=== PATIENT | male | born 1950 | race Native Hawaiian/Other Pacific Islander ===

== ENCOUNTER 2017-10-27 10:39 | Outpatient (CLI) | payer OTHER ==
[2017-10-27 11:39] LABS: BUN/Creatinine Ratio 13; Blood Urea Nitrogen 10 mg/dL (9-20); Hemolysis Index 33
--- NOTE | 2017-10-27 13:38 | Cat Scan Report ---
FINAL REPORT EXAM: CT CHEST W CON HISTORY: LUNG MODULE COMPARISON: None. TECHNIQUE: Multiple contiguous axial images were obtained from the thoracic inlet to the upper abdomen after administration of IV contrast. Reformatted sagittal and coronal images were available for review. FINDINGS: Medical devices: None. Thyroid: Normal. Lymph nodes: No significant mediastinal, hilar, or axillary lymphadenopathy. Vasculature: Normal caliber of the pulmonary artery. No filling defect to suggest pulmonary embolism. Normal caliber of the thoracic aorta with normal variant branching pattern of the aortic arch, with a common origin between the right brachiocephalic artery and left common carotid artery. Heart: Normal. Other mediastinal structures: Normal. Lung parenchyma: Paraseptal emphysematous change in the bilateral upper lobes. 5 millimeter nodule in the posterior right upper lobe (series 2, image 34). 4 millimeter nodule in the posterior right upper lobe (series 2, image 29). Several pleural based nodules along the anterior right upper lobe measuring up to 6 millimeters (series 2, image 38). Cluster of small nodules in the right upper lobe measuring up to 4 millimeters (series 2, image 41). 6 millimeter nodule in the anterior left upper lobe (series 2, image 45). 5 millimeter ground-glass nodule in the anterior left upper lobe (series 2, image 68). 6 millimeter nodule in the apical left upper lobe (series 2, image 20). Airways: Patent. No bronchiectasis. Pleura: No pleural effusion or pneumothorax. Chest wall and spine: No suspicious osseous lesions. No acute fracture or dislocation. The soft tissues are intact. Upper Abdomen: The pancreatic duct is dilated, measuring up to 9 millimeters in diameter. IMPRESSION: 1. Multiple pulmonary nodules measuring up to 6 millimeters, as detailed above. According to Fleischner society criteria, if this patient is at high risk for malignancy, follow-up CT is recommended at 3-6 months and then at 18-24 months if there is no change. If this patient is at low risk for malignancy followup CT is recommended at 3-6 months and then further follow-up may be considered at 18-24 months. 2. Dilated pancreatic duct measuring up to 9 millimeters in diameter. Consider further evaluation with MR pancreatic protocol including MRCP.
== END 2017-10-27 10:40 | disposition home or self-care (01) ==
LOC: CT 10:39
PROVIDERS: ATTEND Internal Medicine
DX: R91.8 Other nonspecific abnormal finding of lung field (principal)
CPT/HCPCS: 36415; 71260; 80048; Q9967

== ENCOUNTER 2018-09-20 14:37 | Emergency (ER) | payer OTHER, MEDICARE ==
[2018-09-20 14:47] VITALS: BP 148/99
--- NOTE | 2018-09-20 15:50 | Emergency Department Report ---
Blank Doc - Documentation Documentation: 68 y o male with hx of arthritis and hx of pancreatis cancer with removal,prese nts here today cc of right wrist pain and swelling with pain with movt tender, wollen ,ernestina xr
--- NOTE | 2018-09-20 16:52 | XRay Report ---
PROCEDURE: XR HAND 3+V RT TECHNIQUE: Right hand 3 views HISTORY: pain COMPARISONS: FINDINGS: Marked degenerative and erosive changes are present at the wrist. There is narrowing of the radiocarp al joint space. There is narrowing of the carpal joint spaces with some inferior migration of the cap itate noted. The navicular has irregular appearance with rotation and some fragmentation noted. No de finitive acute fracture is identified. 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 This document is electronically signed by Mani Bateman MD., September 20 2018 04:50:35 PM ET
--- NOTE | 2018-09-20 16:54 | XRay Report ---
PROCEDURE: XR WRIST 3+V RT TECHNIQUE: Right wrist 4 views HISTORY: pain COMPARISONS: FINDINGS: Degenerative and erosive type changes are present at the wrist. There is narrowing of the radiocarpal joint space. Narrowing throughout the carpal joints. There is some inferior migration of the capitat e. The navicular has an irregular appearance with rotation. No acute fractures are identified IMPRESSION: Marked degenerative changes of the wrist. This document is electronically signed by Mani Bateman MD., September 20 2018 04:52:11 PM ET
[2018-09-20] MEDS ORDERED: PERCOCET 5/325 PO STA (17:47)
--- NOTE | 2018-09-20 18:14 | Emergency Department Report ---
ED Upper Extremity Inj HPI - General Chief Complaint: Extremity Injury, Upper Stated Complaint: RT HAND SWOLLEN/PAIN Time Seen by Provider: 09/20/18 15:44 Source: patient Mode of arrival: Ambulatory Limitations: No Limitations - History of Present Illness MD Complaint: Injury to:: right, wrist, hand -: Gradual, days(s) Other Extremity Injury: Hand: Right, Wrist: Right Handedness: right Place: home Improves With: none Worsens With: movement of extremity (and palpation. ) Associated Symptoms: denies other symptoms - Related Data Previous Rx's Medication Instructions Recorded Last Taken Type predniSONE [Deltasone] 50 mg PO QDAY #5 tab 09/20/18 Unknown Rx traMADol [Ultram] 50 mg PO Q6HR PRN #14 tablet 09/20/18 Unknown Rx Allergies Allergy/AdvReac Type Severity Reaction Status Date / Time No Known Allergies Allergy Unverified 10/27/17 10:39 ED Review of Systems ROS: Stated complaint: RT HAND SWOLLEN/PAIN Other details as noted in HPI Constitutional: denies: chills, fever Eyes: denies: eye pain, eye discharge, vision change ENT: denies: ear pain, throat pain Respiratory: denies: cough, shortness of breath, wheezing Cardiovascular: denies: chest pain, palpitations Endocrine: no symptoms reported Gastrointestinal: denies: abdominal pain, nausea, diarrhea Genitourinary: denies: urgency, dysuria Musculoskeletal: arthralgia. denies: back pain, joint swelling Skin: denies: rash, lesions Neurological: denies: headache, weakness, paresthesias Psychiatric: denies: anxiety, depression Hematological/Lymphatic: denies: easy bleeding, easy bruising ED Past Medical Hx - Past Medical History Additional medical history: Pancreatic cancer - Surgical History Additional Surgical History: Whipple - Social History Smoking Status: Current Every Day Smoker Substance Use Type: None - Medications Home Medications: Home Medications Medication Instructions Recorded Confirmed Last Taken Type predniSONE [Deltasone] 50 mg PO QDAY #5 tab 09/20/18 Unknown Rx traMADol [Ultram] 50 mg PO Q6HR PRN #14 tablet 09/20/18 Unknown Rx ED Physical Exam - General Limitations: No Limitations General appearance: alert, in no apparent distress - Head Head exam: Present: atraumatic, normocephalic - Eye Eye exam: Present: normal appearance, PERRL, EOMI - ENT ENT exam: Present: normal exam, normal orophraynx, mucous membranes moist - Neck Neck exam: Present: normal inspection, full ROM - Respiratory Respiratory exam: Present: normal lung sounds bilaterally. Absent: respiratory distress, wheezes, rales, rhonchi, chest wall tenderness, accessory muscle use, decreased breath sounds, prolonged expiratory - Cardiovascular Cardiovascular Exam: Present: regular rate, normal rhythm. Absent: systolic murmur, diastolic murmur, rubs, gallop - GI/Abdominal GI/Abdominal exam: Present: soft, normal bowel sounds. Absent: tenderness, guarding, rebound, hyperactive bowel sounds, hypoactive bowel sounds, organomegaly - Rectal Rectal exam: Present: deferred - Extremities Exam Extremities exam: Present: normal inspection, tenderness, normal capillary refill, joint swelling (pain to right wrist with swelling and tenderness. worse wtih ROM. pulse 2+) - Back Exam Back exam: Present: normal inspection, full ROM. Absent: CVA tenderness (R), CVA tenderness (L) - Neurological Exam Neurological exam: Present: alert, oriented X3, CN II-XII intact, normal gait - Psychiatric Psychiatric exam: Present: normal affect, normal mood - Skin Skin exam: Present: warm, dry, intact, normal color. Absent: rash, diaphoretic, erythema, urticaria, petechiae, pallor, abrasion ED Course Vital Signs 09/20/18 14:45 Temperature 99.1 F Pulse Rate 94 H Respiratory 18 Rate Blood Pressure 148/99 O2 Sat by Pulse 94 Oximetry ED Medical Decision Making - Radiology Data Radiology results: report reviewed (moderate arthalgia to wrist (right)) - Medical Decision Making discussed the need to follow up with Orthopedic doctor for further management of arthritis and possible need for local steroid injection. Xray discussed with family and the managment plan including RICE, steroids, and splint for comfort. Critical care attestation.: If time is entered above; I have spent that time in minutes in the direct care of this critically ill patient, excluding procedure time. ED Disposition Clinical Impression: Wrist pain, Wrist arthralgia Disposition: TO HOME OR SELFCARE Is pt being admited?: No Does the pt Need Aspirin: No Condition: Stable Instructions: Osteoarthritis (ED), Arthralgia (ED) Prescriptions: predniSONE [Deltasone] 50 mg PO QDAY #5 tab traMADol [Ultram] 50 mg PO Q6HR PRN #14 tablet PRN Reason: Pain Referrals: Cassia PEDRO MD [Primary Care Provider] - 3-5 Days
== END 2018-09-20 18:55 | disposition home or self-care (01) ==
LOC: ED 14:37
DX: M25.531 Pain in right wrist (principal); F17.200 Nicotine dependence, unspecified, uncomplicated; Z85.07 Personal history of malignant neoplasm of pancreas